=== PATIENT | female | born 2005 | race Two or more races ===

== ENCOUNTER 2025-05-26 11:30 | Emergency (ER) | payer MEDICAID, OTHER ==
[~2025-05-26] VITALS: Ht 160 cm; Wt 72.6 kg
[2025-05-26 11:37] VITALS: TEMP 97.9
[2025-05-26] MEDS ORDERED: METOCLOPRAMIDE HCL 10 MG TABLET ONE (13:23)
[2025-05-26] MEDS ORDERED: ACETAMINOPHEN 325 MG TABLET ONE (13:23)
[2025-05-26 13:25] LABS: PLATELET COUNT (AUTO) 241 K/uL (150-450); RED BLOOD CELL COUNT(AUTO) 5.07 MIL/uL (4.0-5.2); RED CELL DISTRIBUTION WIDTH 12.6 % (11.5-15.0); WHITE BLOOD COUNT (AUTO) 8.2 K/uL (4.3-11.0)
[2025-05-26] MEDS: METOCLOPRAMIDE HCL 10 MG TABLET PO ONE (13:27)
[2025-05-26] MEDS: ACETAMINOPHEN 325 MG TABLET PO ONE (13:27)
[2025-05-26 13:36] LABS: APPEARANCE,URINE CLEAR (CLEAR); BLOOD, URINE NEGATIVE Ery/uL (NEGATIVE); LEUKOCYTE ESTERASE ,URINE NEGATIVE (NEGATIVE); NITRITE, URINE NEGATIVE (NEGATIVE); UGLUCOSE 2+ mg/dL (NEGATIVE)
[2025-05-26 13:38] LABS: PREGNANCY TEST URINE QUAL NEGATIVE (NEGATIVE)
[2025-05-26 13:38] LABS: CALCIUM, SERUM 9.2 mg/dL (8.5-10.1); CREATININE 0.7 mg/dL (0.6-1.3); SODIUM SERUM 136.0 mmol/L (136-145); UREA NITROGEN, BLOOD 14.0 mg/dL (7-18)
[2025-05-26 13:44] LABS: ASPARTATE AMINOTRANSFERASE 13.0 U/L (15-37); TOTAL PROTEIN, SERUM 7.6 g/dL (6.4-8.2)
[2025-05-26 13:56] LABS: ADD URINE CULTURE NO
[2025-05-26 15:51] VITALS: BP 105/65; O2SAT 100
== END 2025-05-26 15:50 | disposition home or self-care (01) ==
LOC: ER 11:38
DX: R51.9 Headache, unspecified (principal); R10.2 Pelvic and perineal pain; R10.32 Left lower quadrant pain; R11.0 Nausea; R19.7 Diarrhea, unspecified; E11.9 Type 2 diabetes mellitus without complications; G89.29 Other chronic pain; K59.00 Constipation, unspecified; Z79.4 Long term (current) use of insulin
CPT/HCPCS: 99284; 76856; 85025; 80048; 87086; 83690; 80076; 84703; 81001; 36415; J8597